=== PATIENT | male | born 1935 | race Two or more races ===

== ENCOUNTER 2019-08-28 12:23 | Outpatient (CLI) | payer OTHER | END 2019-08-28 12:28 | disposition home or self-care (01) | LOC: LAB 12:23 | DX: R97.20 Elevated prostate specific antigen [PSA] (principal) ==

== ENCOUNTER 2022-09-03 07:03 | Emergency (ER) | payer OTHER ==
[~2022-09-03] VITALS: Ht 180.3 cm; Wt 68.9 kg
[2022-09-03] MEDS ORDERED: AVAPRO300 MG PO (07:29)
[2022-09-03] MEDS ORDERED: AMLODIPINE-OLM1 EACH PO (07:29)
[2022-09-03] MEDS ORDERED: METOPROLOL SUCC50 MG PO (07:30)
[2022-09-03] MEDS ORDERED: ELIQUIS2.5 MG PO (07:31)
== END 2022-09-03 14:55 | disposition home or self-care (01) ==
LOC: ER 07:03
DX: R10.9 Unspecified abdominal pain (principal); K59.00 Constipation, unspecified; I10 Essential (primary) hypertension; I49.9 Cardiac arrhythmia, unspecified

== ENCOUNTER 2023-01-05 14:50 | Inpatient (IN) | payer OTHER ==
[~2023-01-05] VITALS: Ht 177.8 cm; Wt 61.2 kg
[~2023-01-05 14:50] MED LIST: AMLODIPINE-OLM1 EACH PO; AVAPRO300 MG PO; ELIQUIS2.5 MG PO; METOPROLOL SUCC50 MG PO
[2023-01-07] MEDS ORDERED: HYDROCHLOROTH12.5 MG (09:06)
[2023-01-07] MEDS ORDERED: COMBIGAN EYE DRO5 ML (09:06)
[2023-01-08] MEDS ORDERED: LOSARTAN POTASS50 MG PO (10:49)
== END 2023-01-08 12:43 | disposition home or self-care (01) | DRG 280 ==
LOC: ER 14:50 → ICU-2 21:52 → ICU 21:52
PROVIDERS: ADMIT Internal Medicine; ATTEND Internal Medicine
PROC: B246ZZZ Ultrasonography of Right and Left Heart (ICD-10-PCS; principal; 2023-01-05)
PROC: BW28ZZZ Computerized Tomography (CT Scan) of Head (ICD-10-PCS; 2023-01-05)
DX: I21.4 Non-ST elevation (NSTEMI) myocardial infarction (principal); U07.1 COVID-19; F05 Delirium due to known physiological condition; S01.121A Laceration with foreign body of right eyelid and periocular area, initial encounter; W13.3XXA Fall through floor, initial encounter; Y92.198 Other place in other specified residential institution as the place of occurrence of the external cause; I10 Essential (primary) hypertension; I95.1 Orthostatic hypotension; E78.49 Other hyperlipidemia